=== PATIENT | female | born 1985 | race Caucasian/White ===

== ENCOUNTER 2024-08-05 07:59 | Outpatient (CLI) | payer OTHER ==
--- NOTE | 2024-08-05 12:14 | Mammography Report ---
BILATERAL DIGITAL DIAGNOSTIC MAMMOGRAM 3D/2D WITH EXAGGERATED CC SPOT COMPRESSION: 08/05/2024 CLINICAL: Intermittent pain in left breast. Baseline exam. No prior exams were available for comparison. The breasts are heterogeneously dense, which may obscure small masses (category c / 51-75% glandular tissue). No significant masses, calcifications, or other findings are seen in either breast. IMPRESSION: INCOMPLETE: NEED ADDITIONAL IMAGING EVALUATION No mammographic evidence of malignancy. A targeted ultrasound is recommended and will immediately follow. Based on Tyrer-Cuzick model (a risk assessment model), the patient's lifetime risk is 23.5% and her 1 0 year risk is 2.8%. If a patient has an elevated risk, a more comprehensive evaluation should be con sidered and/or a referral to a genetic counselor. The [employer] [employer], [employer], and NCCN Guidelines advise the consideration of Breast MRI as an adjunct to screening mammog ally in patients whose "Lifetime risk to develop breast cancer" is 20% or higher. This exam was interpreted at Station ID: [id number]. NOTE: For mammograms, a report in lay terms will be sent to the patient. Approximately 15% of breast malignancies will not be visualized mammographically. In the management of a palpable breast mass, a negative mammogram must not discourage biopsy of a clinically suspicious lesion. Electronically Signed By: Colt Valdes M.D. slc/:08/05/2024 09:08:05 ACR BI-RADS Category 0: Incomplete: Need Additional Imaging Evaluation PARENCHYMAL PATTERN: (D) - The breast(s) demonstrate(s) heterogeneously dense fibroglandular tutu zamudio. BI-RADS CATEGORY: (0) - 0 Ultrasound [id number] Immediate follow-up LATERALITY: (B)
--- NOTE | 2024-08-05 12:14 | Ultrasound Report ---
LIMITED ULTRASOUND OF LEFT BREAST: 08/05/2024 CLINICAL: Focal left breast pain. Comparison is made to exam dated: 08/05/2024 mammogram - [facility]. Real-time ultrasound of the left breast 1 o'clock region was performed. Reyes scale images of the jese l-time examination were reviewed. No significant abnormalities were seen sonographically in the left breast. IMPRESSION: NEGATIVE There is no sonographic evidence of malignancy. A 1 year screening mammogram is recommended. Exam findings were conveyed to the patient. Patient is advised to monitor for significant change. Cli nical follow-up as needed. This exam was interpreted at Station ID: [id number]. Electronically Signed By: Colt Valdes M.D. slc/:08/05/2024 09:08:53 ACR BI-RADS Category 1: Negative BI-RADS CATEGORY: (1) - 1 RECOMMENDATION: (ANNUAL) - Recommend routine annual screening mammography. [id number] 1 year screening LATERALITY: (B)
== END 2024-08-05 08:00 | disposition home or self-care (01) ==
LOC: DI 07:59
PROVIDERS: ATTEND Nurse Practitioner Family
DX: N64.4 Mastodynia (principal); R92.323 Mammographic fibroglandular density, bilateral breasts